=== PATIENT | female | born 1990 | race Caucasian/White ===

== ENCOUNTER 2017-02-06 22:20 | Emergency (ER) | payer MEDICAID, OTHER ==
[~2017-02-06] VITALS: Ht 165.1 cm; Wt 67.1 kg
[2017-02-06 22:29] VITALS: BP 121/72
[2017-02-07] MEDS: ONDANSETRON 4 MG ODT PO ONE (00:19)
[2017-02-07] MEDS: ACETAMINOPHEN 325 MG TAB PO ONE (00:19)
[2017-02-07 00:36] LABS: APPEARANCE,URINE HAZY (CLEAR); BILIRUBIN,URINE NEGATIVE (NEGATIVE); BLOOD, URINE NEGATIVE (NEGATIVE); COLOR,URINE YELLOW (YELLOW); LEUKOCYTE ESTERASE ,URINE NEGATIVE (NEGATIVE); NITRITE, URINE NEGATIVE (NEGATIVE); UGLUCOSE TRACE (NEGATIVE)
[2017-02-07 00:42] LABS: HEMATOCRIT 39.1 % (36-48); HEMOGLOBIN 13.1 g/dL (12.0-16.0); MEAN CORPUSCULAR HEMOGLOBIN 30 pg (27-31); MEAN CORPUSCULAR HGB CONC 33 g/dL (33-37); MEAN CORPUSCULAR VOLUME 90 fL (80-94); PLATELET COUNT (AUTO) 337 K/uL (140-450); RED BLOOD CELL COUNT(AUTO) 4.34 MIL/uL (4.20-5.40); RED CELL DISTRIBUTION WIDTH 12.1 % (11.6-13.7); WHITE BLOOD COUNT (AUTO) 9.4 K/uL (4.8-10.8)
[2017-02-07 00:45] LABS: RBC,URINE 0-5 (RARE) /HPF (0-5)
[2017-02-07 00:54] LABS: ALBUMIN 3.5 g/dL (3.4-5.0); ANION GAP 10.8 (8-16); CARBON DIOXIDE 27.1 mmol/L (21-32); CREATININE 0.7 mg/dL (0.6-1.3); POTASSIUM 3.9 mmol/L (3.5-5.1); TOTAL BILIRUBIN 0.3 mg/dL (0.0-1.0)
[2017-02-07 01:02] LABS: EOSINOPHILS % (MANUAL) 2 % (0-4); LYMPHOCYTES % (MANUAL) 33 % (20-46); MONOCYTES % (MANUAL) 9 % (5-12)
[2017-02-07 02:24] VITALS: BP 118/62
== END 2017-02-07 02:24 | disposition home or self-care (01) ==
LOC: MED 22:20
DX: R11.0 Nausea (principal); R19.7 Diarrhea, unspecified; Z3A.01 Less than 8 weeks gestation of pregnancy; Z88.0 Allergy status to penicillin; F12.10 Cannabis abuse, uncomplicated
CPT/HCPCS: 36415; 76817; 80053; 81001; 81025; 84702; 85025; 86900; 86901; 87086; 99285; S0119

== ENCOUNTER 2017-02-27 18:26 | Emergency (ER) | payer OTHER ==
[~2017-02-27] VITALS: Ht 167.6 cm; Wt 66.7 kg
[2017-02-27 18:38] VITALS: BP 126/87
--- NOTE | 2017-02-27 18:46 | NUR ---
PT TO LOBBY AWAITING ROOM, VSS, NAD, PT IS AOX4 WITH STEADY GAIT
[2017-02-27 19:13] LABS: BASOPHILS # (AUTO) 0.5 K/uL (0.00-0.22); BASOPHILS % (AUTO) 3.6 % (0.0-2.0); EOSINOPHILS # (AUTO) 0.1 K/uL (0-0.4); EOSINOPHILS % (AUTO) 0.7 % (0.0-4.0); HEMATOCRIT 44.2 % (36-48); HEMOGLOBIN 14.9 g/dL (12.0-16.0); LYMPHOCYTES # (AUTO) 1.1 K/uL (2.5-16.5); LYMPHOCYTES % (AUTO) 7.4 % (20.5-51.1); MEAN CORPUSCULAR HEMOGLOBIN 30 pg (27-31); MEAN CORPUSCULAR HGB CONC 34 g/dL (33-37); MEAN CORPUSCULAR VOLUME 88 fL (80-94); MONOCYTES # (AUTO) 0.4 K/uL (0.8-1.0); MONOCYTES % (AUTO) 2.7 % (1.7-9.3); NEUTROPHILS # (AUTO) 12.6 K/uL (1.8-7.7); NEUTROPHILS % (AUTO) 85.6 % (42.2-75.2); PLATELET COUNT (AUTO) 407 K/uL (140-450); RED BLOOD CELL COUNT(AUTO) 5.01 MIL/uL (4.20-5.40); WHITE BLOOD COUNT (AUTO) 14.7 K/uL (4.8-10.8)
--- NOTE | 2017-02-27 19:20 | NUR ---
PATIENT AMBULATED TO ER OF2.
--- NOTE | 2017-02-27 19:21 | NUR ---
PATIENT IS A 26 Y/O FEMALE WHO PRESENTS TO THE ED C/O VOMITING. PT REPORTS, "I HAVE BEEN HAVING ABD PAIN AND IT HURTS WHEN I VOMIT." PT REPORTS 9/10 ACHING ABD PAIN THAT DOES NOT RADIATE. PT DENIES CP, SOB, REPORTS N/V/D. PT AAOX4, RR EVEN/UNLABORED. PT REPOSITIONED FOR COMFORT, BLANKET OFFERED. ER HAN SIFUENTES NOTIFIED. WILL CONTINUE TO MONITOR.
[2017-02-27 19:25] LABS: ANION GAP 17.3 (8-16); CARBON DIOXIDE 22.3 mmol/L (21-32); CREATININE 0.8 mg/dL (0.6-1.3); POTASSIUM 3.6 mmol/L (3.5-5.1)
[2017-02-27 19:30] LABS: TOTAL BILIRUBIN 0.5 mg/dL (0.0-1.0)
[2017-02-27] MEDS ORDERED: NACL 0.9% 1,000 ML IV ONE (19:40)
[2017-02-27] MEDS ORDERED: METOCLOPRAMIDE 10 MG/2 ML INJ VIAL IVP ONE (19:40)
[2017-02-27 19:51] LABS: APPEARANCE,URINE HAZY (CLEAR); BILIRUBIN,URINE 1+ (NEGATIVE); BLOOD, URINE NEGATIVE (NEGATIVE); COLOR,URINE YELLOW (YELLOW); LEUKOCYTE ESTERASE ,URINE NEGATIVE (NEGATIVE); NITRITE, URINE NEGATIVE (NEGATIVE); UGLUCOSE NEGATIVE (NEGATIVE)
[2017-02-27 19:55] LABS: RBC,URINE 0-5 (RARE) /HPF (0-5)
--- NOTE | 2017-02-27 19:56 | NUR ---
Pt report given to TIGIST SAMS. Transfer of care at this time.
--- NOTE | 2017-02-27 19:57 | NUR ---
PT AMBULATED TO ER BED 1
[2017-02-27] MEDS ORDERED: ONDANSETRON 4 MG/2 ML VIAL IVP ONE (20:25)
[2017-02-27] MEDS ORDERED: NITROFURANTOIN 100 MG CAP PO ONE (20:35)
--- NOTE | 2017-02-27 21:04 | NUR ---
MACROBID NOT AVAILABLE IN PYS HOUSE SUP. NOTFIED.
--- NOTE | 2017-02-27 21:24 | NUR ---
FLYNN NOT AVAILABLE, MADE AWARE, WILL GIVE RX FOR PT TO TAKE AT HOME.
[2017-02-27 21:34] VITALS: BP 118/67
--- NOTE | 2017-02-27 21:35 | NUR ---
DPatient discharged with v/s stable. Written and verbal after care instructions given and explained. Patient alert, oriented and verbalized understanding of instructions. Ambulatory with steady gait. All questions addressed prior to discharge. ID band removed. Patient advised to follow up with PMD. Rx of REGLAN 10MG, MACROBID given. Patient educated on indication of medication including possible reaction and side effects. Opportunity to ask questions provided and answered.
== END 2017-02-27 21:34 | disposition home or self-care (01) ==
LOC: MED 18:26
DX: O23.41 Unspecified infection of urinary tract in pregnancy, first trimester (principal); Z3A.10 10 weeks gestation of pregnancy; Z88.1 Allergy status to other antibiotic agents; Z88.6 Allergy status to analgesic agent
CPT/HCPCS: 36415; 80053; 81001; 85025; 87086; 87804; 96361; 96374; 96375; 99284; J2405; J2765; J7030

== ENCOUNTER 2018-07-07 23:28 | Emergency (ER) | payer OTHER ==
[~2018-07-07] VITALS: Ht 167.6 cm; Wt 70.8 kg
[2018-07-07 23:35] VITALS: BP 148/63
--- NOTE | 2018-07-07 23:43 | NUR ---
PT AMBULATED TO THE RESTROOM, GAVE U/A SPECIMEN AND AMBULATED TO BED #12
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
[2018-07-08] MEDS ORDERED: ACYCLOVIR 200 MG CAP PO ONE (00:20)
[2018-07-08 00:22] LABS: APPEARANCE,URINE CLEAR (CLEAR); BILIRUBIN,URINE NEGATIVE (NEGATIVE); BLOOD, URINE 1+ (NEGATIVE); COLOR,URINE YELLOW (YELLOW); LEUKOCYTE ESTERASE ,URINE TRACE (NEGATIVE); NITRITE, URINE NEGATIVE (NEGATIVE); UGLUCOSE NEGATIVE (NEGATIVE)
[2018-07-08 00:42] LABS: RBC,URINE 0-5 /HPF (0-5); WBC,URINE 0-5 /HPF (0-5)
--- NOTE | 2018-07-08 00:56 | NUR ---
Patient discharged with v/s stable. Patient acting appropriatly, states she is ready to go home, 0/10 pain at this time. Written and verbal after care instructions given and explained. Patient alert, oriented and verbalized understanding of instructions. Ambulatory with steady gait. All questions addressed prior to discharge. ID band removed. Patient advised to follow up with PMD. Rx of Coward, and Acyclovir given. Patient educated on indication of medication including possible reaction and side effects. Opportunity to ask questions provided and answered.
[2018-07-08 00:57] VITALS: BP 135/68
== END 2018-07-08 00:56 | disposition home or self-care (01) ==
LOC: MED 23:28
DX: B00.9 Herpesviral infection, unspecified (principal); Z90.49 Acquired absence of other specified parts of digestive tract; Z88.1 Allergy status to other antibiotic agents; Z88.8 Allergy status to other drugs, medicaments and biological substances
CPT/HCPCS: 81001; 81025; 87086; 99283

== ENCOUNTER 2019-05-18 16:27 | Emergency (ER) | payer MEDICAID, OTHER ==
[~2019-05-18] VITALS: Ht 167.6 cm; Wt 63.6 kg
[2019-05-18 16:31] VITALS: BP 133/85
[2019-05-18] MEDS ORDERED: cefTRIAXone 1,000 MG VIAL ONE (17:20)
[2019-05-18 17:29] LABS: APPEARANCE,URINE CLOUDY (CLEAR); BILIRUBIN,URINE NEGATIVE (NEGATIVE); BLOOD, URINE NEGATIVE (NEGATIVE); COLOR,URINE YELLOW (YELLOW); LEUKOCYTE ESTERASE ,URINE TRACE (NEGATIVE); NITRITE, URINE POSITIVE (NEGATIVE); UGLUCOSE 1+ (NEGATIVE)
[2019-05-18 17:48] LABS: BASOPHILS % (AUTO) 0.3 % (0.0-2.0); EOSINOPHILS # (AUTO) 0.1 K/uL (0-0.4); EOSINOPHILS % (AUTO) 0.7 % (0.0-4.0); HEMATOCRIT 30.2 % (36-48); HEMOGLOBIN 10.3 g/dL (12.0-16.0); LYMPHOCYTES # (AUTO) 1.7 K/uL (2.5-16.5); MEAN CORPUSCULAR HEMOGLOBIN 30 pg (27-31); MEAN CORPUSCULAR HGB CONC 34 g/dL (33-37); MEAN CORPUSCULAR VOLUME 87.7 fL (80-94); MONOCYTES # (AUTO) 0.8 K/uL (0.8-1.0); NEUTROPHILS # (AUTO) 6.4 K/uL (1.8-7.7); PLATELET COUNT (AUTO) 387 K/uL (140-450); RED BLOOD CELL COUNT(AUTO) 3.44 MIL/uL (4.20-5.40); RED CELL DISTRIBUTION WIDTH 13.2 % (11.6-13.7)
[2019-05-18 18:19] LABS: RBC,URINE 0-5 /HPF (0-5)
[2019-05-18 18:23] LABS: ALBUMIN 2.5 g/dL (3.4-5.0); ANION GAP 12.3 (8-16); CARBON DIOXIDE 24.1 mmol/L (21-32); CREATININE 0.6 mg/dL (0.6-1.3); POTASSIUM 3.4 mmol/L (3.5-5.1); TOTAL BILIRUBIN 0.2 mg/dL (0.0-1.0)
[2019-05-18 18:30] VITALS: BP 121/76
== END 2019-05-18 18:35 | disposition home or self-care (01) ==
LOC: MED 16:27
DX: O23.42 Unspecified infection of urinary tract in pregnancy, second trimester (principal); Z88.1 Allergy status to other antibiotic agents; Z91.09 Other allergy status, other than to drugs and biological substances; Z3A.26 26 weeks gestation of pregnancy; Z88.0 Allergy status to penicillin; Z88.6 Allergy status to analgesic agent
CPT/HCPCS: 36415; 76805; 80053; 81001; 84702; 85025; 86900; 86901; 87086; 96365; 99284; J0696; Q0092; 81002